=== PATIENT | female | born 1955 | race Two or more races ===

== ENCOUNTER 2023-10-17 17:27 | Inpatient (IN) | payer MEDICARE ==
[~2023-10-17] VITALS: Ht 170.2 cm; Wt 72.6 kg
[2023-10-17] MEDS ORDERED: MIDAZOLAM HCL 2 MG/2 ML VIAL IM ONE (19:00)
[2023-10-17 19:02] LABS: BASOPHILS % (AUTO) 0.4 % (0.0-2.0); EOSINOPHILS # (AUTO) 0.1 K/uL (0.0-0.7); HEMOGLOBIN 12.2 g/dL (10.9-14.3); LYMPHOCYTES # (AUTO) 2.1 K/uL (0.8-4.8); LYMPHOCYTES % (AUTO) 26.5 % (20.5-51.5); MEAN CORPUSCULAR HEMOGLOBIN 31.9 uug (24.7-32.8); MEAN CORPUSCULAR HGB CONC 35 g/dL (32.3-35.6); MEAN CORPUSCULAR VOLUME 91.7 fL (75.5-95.3); MONOCYTES # (AUTO) 0.6 K/uL (0.1-1.30); MONOCYTES % (AUTO) 7.2 % (0.0-11.0); NEUTROPHILS % (AUTO) 64.9 % (38.5-71.5); PLATELET COUNT (AUTO) 210 K/uL (179-408); RED BLOOD CELL COUNT(AUTO) 3.81 MIL/uL (3.63-4.92); RED CELL DISTRIBUTION WIDTH 12.7 % (12.3-17.7); WHITE BLOOD COUNT (AUTO) 7.7 K/uL (3.8-11.8)
[2023-10-17 19:17] LABS: CALCIUM 9.3 mg/dL (8.5-10.1); CARBON DIOXIDE 30 mmol/L (21-32); CHLORIDE 94 mmol/L (98-107); CREATININE 0.7 mg/dL (0.6-1.3); GLUCOSE 95 mg/dL (74-106); POTASSIUM 4.3 mmol/L (3.5-5.1); SODIUM SERUM 129 mmol/L (136-145); UREA NITROGEN, BLOOD 18 mg/dL (7-18)
[2023-10-17 19:22] LABS: DIFFERENTIAL COMMENT 1
[2023-10-17 19:23] LABS: AMMONIA < 10 umol/L (11-32)
[2023-10-17 19:25] LABS: ALANINE AMINOTRANSFERASE 18 U/L (14-59); ALBUMIN 4.4 g/dL (3.4-5.0); ALKALINE PHOSPHATASE 86 U/L (50-136); BILIRUBIN,DIRECT 0.2 mg/dL (0.0-0.2); BILIRUBIN,TOTAL 0.4 mg/dL (0.2-1.0); TOTAL PROTEIN, SERUM 7.3 g/dL (6.4-8.2)
[2023-10-17 19:30] LABS: THYROID STIMULATING HORMONE 5.661 mIU/mL (0.358-3.740)
[2023-10-17 19:36] LABS: ACETAMINOPHEN < 2.0 ug/mL (10-30)
[2023-10-17 19:40] LABS: ETHANOL < 3 MG/DL (0-10)
[2023-10-17 19:46] LABS: ASPARTATE AMINOTRANSFERASE 8 U/L (15-37)
[2023-10-17] MEDS ORDERED: LAMOTRIGINE 200 MG TABLET PO STA (20:54)
[2023-10-17] MEDS ORDERED: PAROXETINE HCL 20 MG TABLET PO STA (20:54)
[2023-10-17] MEDS ORDERED: ATORVASTATIN 40 MG TABLET PO SCH (21:00)
[2023-10-17] MEDS ORDERED: OLANZAPINE 10 MG VIAL IM ONE ×2 (21:00→21:06)
[2023-10-17] MEDS ORDERED: ATORVASTATIN 20 MG TABLET ONE (21:06)
[2023-10-17] MEDS ORDERED: B1/B1TAB5 PO (21:10)
[2023-10-17] MEDS ORDERED: LORA0.5T48 PO (21:10)
[2023-10-17] MEDS ORDERED: PARO-142 PO (21:10)
[2023-10-17] MEDS ORDERED: LEVO88TA5 PO (21:10)
[2023-10-17] MEDS ORDERED: MINO60SO TP (21:10)
[2023-10-17] MEDS ORDERED: LAMO250T2 PO (21:10)
[2023-10-17] MEDS ORDERED: BUPR100T5 PO (21:10)
[2023-10-17] MEDS ORDERED: HYDR-3972 PO (21:10)
[2023-10-17] MEDS ORDERED: AMLO-212 PO (21:10)
[2023-10-17] MEDS ORDERED: LAMO50TA3 PO (21:10)
[2023-10-17] MEDS ORDERED: PRAV80TA21 PO (21:10)
[2023-10-17] MEDS ORDERED: QUET25TA PO (21:10)
[2023-10-18] MEDS ORDERED: BLOOD SUGAR DIAGNOSTIC 1 EACH STRIP VI ONE (00:30)
[2023-10-18] MEDS ORDERED: MAG HYDROX/AL HYDROX/SIMETH 30 ML LIQUID UDC PO PRN (00:30)
[2023-10-18] MEDS ORDERED: MAGNESIUM HYDROXIDE 30 ML LIQUID UDC PO PRN (00:30)
[2023-10-18] MEDS ORDERED: TEMAZEPAM 7.5 MG CAPSULE PO PRN (00:30)
[2023-10-18] MEDS ORDERED: ACETAMINOPHEN 325 MG TABLET PO PRN (00:30)
[2023-10-18 08:29] VITALS: BP 115/48; TEMP 97.9; O2SAT 97
[2023-10-18] MEDS: NICOTINE 7 MG/24HR PATCH TD SCH (09:00)
[2023-10-18] MEDS ORDERED: CYAN100096 PO (10:46)
[2023-10-18] MEDS: CLONAZEPAM 0.5 MG TABLET PO PRN ×2 (12:08→19:51)
[2023-10-18] MEDS ORDERED: diphenhydrAMINE 50 MG/1 ML VIAL IM ONE (14:00)
[2023-10-18] MEDS ORDERED: OLANZAPINE 10 MG VIAL IM ONE (14:00)
[2023-10-18] MEDS: busPIRone 5 MG TABLET PO SCH (17:18)
[2023-10-18 17:36] VITALS: BP 125/69; TEMP 98.1; O2SAT 97
[2023-10-18 19:57] VITALS: BP 133/60; TEMP 98.1; O2SAT 97
[2023-10-18] MEDS: HYDROCODONE/APAP 5-325MG TABLET PO PRN (20:43)
[2023-10-18] MEDS ORDERED: LAMOTRIGINE 100 MG TABLET PO SCH (21:00)
[2023-10-18] MEDS ORDERED: ATORVASTATIN 40 MG TABLET PO SCH (21:00)
[2023-10-18] MEDS ORDERED: LORAZEPAM 1 MG TABLET PO PRN (21:45)
[2023-10-18] MEDS: LORAZEPAM 0.5 MG TABLET PO PRN (22:31)
[2023-10-19] MEDS ORDERED: LEVOTHYROXINE SODIUM 88 MCG TABLET PO SCH (07:00)
[2023-10-19 07:52] VITALS: BP 101/54; TEMP 98.1; O2SAT 96
[2023-10-19] MEDS ORDERED: LAMOTRIGINE 25 MG TABLET PO SCH (09:00)
[2023-10-19] MEDS: NICOTINE 7 MG/24HR PATCH TD SCH (09:00)
[2023-10-19] MEDS ORDERED: CYANOCOBALAMIN 1,000 MCG TABLET PO SCH (09:00)
[2023-10-19] MEDS ORDERED: ARIPIPRAZOLE 5 MG TABLET PO SCH (09:00)
[2023-10-19] MEDS ORDERED: AMLODIPINE 5 MG TABLET PO SCH (09:00)
[2023-10-19] MEDS ORDERED: PAROXETINE HCL 20 MG TABLET PO SCH (09:00)
[2023-10-19] MEDS: LORAZEPAM 0.5 MG TABLET PO PRN (10:16)
[2023-10-19 10:17] VITALS: BP 101/54
[2023-10-19] MEDS: busPIRone 5 MG TABLET PO SCH (10:17)
[2023-10-19] MEDS: HYDROCODONE/APAP 5-325MG TABLET PO PRN (11:42)
== END 2023-10-19 15:00 | disposition left against medical advice (07) | DRG 885 ==
LOC: ER 17:27 → GPS 22:39
PROVIDERS: ADMIT Psychiatry & Neurology Psychiatry; ATTEND Nurse Practitioner Acute Care
DX: F33.2 Major depressive disorder, recurrent severe without psychotic features (principal); E87.1 Hypo-osmolality and hyponatremia; F41.0 Panic disorder [episodic paroxysmal anxiety]; E78.5 Hyperlipidemia, unspecified; E03.9 Hypothyroidism, unspecified; Z79.890 Hormone replacement therapy; Z79.899 Other long term (current) drug therapy; I10 Essential (primary) hypertension; Z83.3 Family history of diabetes mellitus
CPT/HCPCS: 36415; 70450; 71045; 84443; 84484; 85025; 85730; 93005; A9150; G0480; J1200; J2250; J2358